=== PATIENT | male | born 1970 | race African-American/Black ===

== ENCOUNTER 2019-07-05 10:25 | Inpatient (IN) | payer OTHER ==
[2019-07-05] MEDS ORDERED: morphine CARPU-JECT 4 MG/1 ML DISP.SYRIN IVPUSH ONE (10:35)
[2019-07-05] MEDS ORDERED: SODIUM CHLORIDE 1,000 ML IV STA (10:35)
[2019-07-05] MEDS ORDERED: MORPHINE SULFATE 2 MG/ML VIAL IVPUSH ONE (10:35)
[2019-07-05] MEDS ORDERED: ONDANSETRON 4 MG/2 ML VIAL IVPUSH ONE (10:38)
[2019-07-05] MEDS ORDERED: morphine SULFATE 4 MG/ML VIAL ONE (10:39)
[2019-07-05 10:42] VITALS: BP 131/72; PULSE 73; TEMP 97.4; BMI 23.0
--- NOTE | 2019-07-05 10:53 | PDOC ---
Documentation entered by Malika Odell SCRIBE, acting as scribe for Vero Zhao DO. Vero Zhao DO: This documentation has been prepared by the Cass cunningham Nirvannie, SCRIBE, under my direction and personally reviewed by me in its entirety. I confirm that the documentation accurately reflects all work, treatment, procedures, and medical decision making performed by me. Attending Attestation - Resident Resident Name: KerryRosalinaAngeli - ED Attending Attestation I have performed the following: I have examined & evaluated the patient, The case was reviewed & discussed with the resident, I agree w/resident's findings & plan, Exceptions are as noted - HPI HPI: 07/05/19 12:02 The patient is a 49 year old male, with a significant past medical history of hepatitis b and hepatitis c, hirschsprung disease, who presents to the emergency department with 1 hour of sudden onset right inguinal pain. As per patient, at approximately 9am he began to experience right inguinal pain with associated nausea, urinary hesitancy, right lower back, and suprapubic pain. He endorses possible hematuria 2 days ago. He denies any testicular, scrotal, or penile pain. He denies any recent fevers, chills, headache or dizziness. He denies any recent diarrhea or constipation. He denies any recent chest pain or shortness of breath. He denies any recent dysuria, frequency, or urgency. Allergies: Penicillins. - Physicial Exam PE: 07/05/19 12:04 Constitutional: +Colicky. Awake, alert, oriented. No acute distress. Head: Normocephalic. Atraumatic Eyes: PERRL. EOMI. Conjunctivae are not pale. ENT: Mucous membranes are moist and intact. Posterior pharynx without exudates or erythema. Uvula midline. Neck: Supple. Full ROM. No lymphadenopathy. Cardiovascular: Regular rate. Regular rhythm. S1, S2 regular. Distal pulses are 2+ and symmetric. Pulmonary/Chest: No evidence of respiratory distress. Clear to auscultation bilaterally No wheezing, rales or rhonchi. Abdominal: Soft and non-distended. No rebound, guarding or rigidity. No organomegaly. No palpable masses. Good bowel sounds. Pelvic: +R inguinal pain. Back: +R low back. No CVA tenderness. Musculoskeletal: No edema. No cyanosis. No clubbing. Full range of motion in all extremities. No calf tenderness. Radial/pedal pulses are intact and 2+ bilaterally Skin: Skin is warm and dry. No petechiae. No purpura. Neurological: Alert and oriented to person, place, and time. Cranial nerves II -XII are grossly intact. Normal speech. Strength is grossly symmetric. No sensory deficits. Psychiatric: Good eye contact. Normal interaction, affect and behavior. - Medical Decision Making 07/05/19 10:50 a/p: 49yo male with acute onset of abd pain radiating to his groin on the right -suspect renal colic -pt denies prior hx of kidney stones -had a normal bm this am -c/o nausea -R low back and R inguinal pain -suprapubic pain -pt states poss hematuria before, urinary hesitancy now -will send labs, scrotal ultrasound and spiral ct -will send ua -will medicate for pain -no testicular ttp, no rashes or lesions, no signs of fourniers disease -will monitor and reassess -pt with colic during exam 07/05/19 12:19 pt with large r renal stone, hydro, uti will start iv abx renal function and wbc normal 07/05/19 12:20 will call urology 07/05/19 14:05 resident discussed the case with Dr. myles Urology who recommends admission for iv abx and will see patient in consult 07/05/19 14:36 resident discussed the case with the admitting team who accepts pt to service
[2019-07-05] MEDS ORDERED: KETOROLAC TROMETHAMINE 30 MG/1 ML VIAL IVPUSH ONE (10:55)
[2019-07-05] MEDS ORDERED: KETOROLAC TROMETHAMINE 30 MG/1 ML VIAL ONE (10:58)
[2019-07-05 11:29] LABS: BASO % 0.5 % (0-2.0); EOS % 0.6 % (0-4.5); HEMATOCRIT 38.7 % (35.4-49); HEMOGLOBIN 12.6 GM/dL (11.7-16.9); LYMPH % 27.8 % (8-40); MCH 24.5 pg (25.7-33.7); MCHC 32.5 g/dl (32.0-35.9); MEAN CELL VOLUME 75.5 fl (80-96); MEAN PLT VOLUME 7.9 fl (7.5-11.1); MONO % 8.7 % (3.8-10.2); NEUT % 62.4 % (42.8-82.8); PLATELET COUNT 233 K/MM3 (134-434); RBC 5.13 M/mm3 (4.00-5.60); RDW 13.6 % (11.9-15.9); WHITE BLOOD COUNT 5.5 K/mm3 (4.0-10.0)
--- NOTE | 2019-07-05 11:31 | PDOC ---
History of Present Illness - General Chief Complaint: Pain Stated Complaint: FALL ABDOMINAL PAIN Time Seen by Provider: 07/05/19 10:29 - History of Present Illness Initial Comments: HPI: 49yo M with PMH of hepatitis b and hepatitis c, hirschsprung disease, hernia presenting with lower abdominal pain and back pain since 9am this morning. Patient has had this same pain for the past year but it is more severe and now rated 10/10. Has not been evaluated by a physician for this pain. Had a normal bowel movement earlier today. No vomiting, but feeling nauseous. Has had hernia surgery in the past but does not remember when. Had some urinary hesitancy this morning. Unsure if he had hematuria. No fever, but endorsing chills. ROS: Constitutional: no fever, +chills HEENT: no throat pain, no dysphagia Cardiovascular: no chest pain, no palpitations Respiratory: no cough, no shortness of breath Gastrointestinal: +abdominal pain, +nausea Genitourinary: no dysuria, +urinary hesitancy Musculoskeletal: no myalgia, no arthralgia Skin: no rash, no itching Neurologic: no headache, no weakness PE: General: Awake, alert, and fully oriented, writhing in bed Head: No signs of trauma Eyes: EOMI, sclera anicteric ENT: Moist mucus membranes Neck: Normal ROM, supple Lungs: Lungs clear, Normal breath sounds Cardio: Regular rhythm, S1 and S2 present Abdomen: Soft, +guarding. Tenderness in inguinal area with no apparent mass/ bulge. +CVA tenderness on right, but not left Extremities: Normal range of motion, Distal pulses present SKIN: Warm, Dry, normal turgor Neurologic: Cranial nerves II through XII grossly intact. Normal speech ED Course/MDM: DDX including but not limited to nephrolithiasis, UTI, pyelonephritis, incarcerated hernia, testicular torsion CT spiral CT Labs Morphine Fluids Toradol 07/05/19 11:31 07/05/19 11:40 Pain controlled, now 06/12 CT report per radiology : "EXAM#: TYPE/EXAM: RESULT: [id number] CT/SPIRAL- RENAL- STONE CT Flank pain. Rule out renal stone CT scan of the abdomen pelvis without oral and intravenous contrast Coronal and sagittal reformatted images were obtained Comparison: None available The visualized lung base appears unremarkable and the heart is within normal limits in size. The stomach is adequately distended without wall thickening. The liver is within normal limits in size with a couple of low-attenuation densities the largest in the left hepatic lobe measuring 1.6 cm that statistically may represent cysts. The spleen , pancreas, both adrenal glands and the left kidney appear unremarkable. There is a large stone in the right renal pelvis measuring 2.7 x 1.1 cm with mild right renal hydronephrosis. There is mild right hydroureter without gross evidence of an obstructing stone. There is no evidence of left hydroureteronephrosis or renal nonobstructing stone. There is no evidence of small bowel obstruction. Normal-appearing terminal ileum and appendix. Normal stool burden the colon with questionable few diverticula in the sigmoid colon and without evidence of acute diverticulitis. Moderately distended urinary bladder without gross wall thickening. Normal size prostate gland. No free air, free fluid or enlarged lymph nodes are identified. Moderate to marked degenerative disc disease at L5-S1 level and mild to moderate degenerative disc disease at L4-L5 level with mild disc bulge at both levels Impression: Large right renal pelvis stone resulting in mild right renal hydronephrosis. No gross right hydroureter or obstructing stone is identified. Likely couple of small simple cysts in the left hepatic lobe with the largest measuring 1.6 cm. Significant degenerative disc disease at L5-S1 level and mild to moderate degenerative disc disease at L4-L5 level Reported By: Betty Dacosta MD 07/05/19 1143 " 07/05/19 12:13 US report per radiology: " EXAM#: TYPE/EXAM: RESULT: [id number] US/SCROTUM AND CONTENTS US Inguinal pain. Rule out torsion Scrotal ultrasound. Azul scale, color doppler and pulse Doppler evaluation of the scrotum was performed The right testicle measures 4 x 2.3 cm with homogeneous echotexture and normal vascular flow. Right epididymal head, body and tail measure 11, 2 and 3 mm, respectively. A small right hydrocele is present. Left testicle measures 4.9 x 2.4 cm with a homogeneous echotexture and normal vascular flow. Left epididymal head, body and tail measure 12, 4 and 3 mm, respectively. A small left hydrocele is present. There is normal and symmetric color Doppler flow in both testicles. No gross evidence of a varicocele, bilaterally Impression: Both testicles appear unremarkable without evidence of torsion. Small right and minimal left hydrocele. There is no evidence of a varicocele. " Patient has a urologist but has not seen him in over five years. Denies history of kidney stone. Page to urology, [phone] Page sent 07/05/19 12:[address] Kaur, urology. Patient likely needs a stent. Plan for admission 07/05/19 13:[address] Jcaob who accepted patient for admission under himself 07/05/19 14:09 Past History - Past Medical History Allergies/Adverse Reactions: Allergies Allergy/AdvReac Type Severity Reaction Status Date / Time Penicillins Allergy Verified 07/05/19 10:42 Home Medications: Ambulatory Orders Ciprofloxacin HCl [Cipro] 500 mg PO BID #20 tablet 07/05/19 Ketorolac Tromethamine [Toradol] 10 mg PO Q6H #28 tablet 07/05/19 COPD: No - Psycho Social/Smoking Cessation Hx Smoking History: Unknown if ever smoked Have you smoked in the past 12 months: No Information on smoking cessation initiated: No Hx Alcohol Use: No Drug/Substance Use Hx: No *Physical Exam - Vital Signs Last Vital Signs Temp Pulse Resp BP Pulse Ox 97.4 F L 73 16 131/72 97 07/05/19 10:25 07/05/19 10:25 07/05/19 10:25 07/05/19 10:25 07/05/19 10:25 ED Treatment Course - LABORATORY CBC & Chemistry Diagram: 07/05/19 10:45 07/05/19 10:45 - RADIOLOGY Radiology Studies Ordered: Category Date Time Status SPIRAL- RENAL-STONE CT [CT] Stat CT Scan 07/05/19 10:37 Ordered SCROTUM AND CONTENTS US [US] Stat Ultrasound 07/05/19 10:38 Ordered - Medications Given in the ED: ED Medications Discontinued Medications Generic Name Dose Route Start Last Admin Trade Name Freq PRN Reason Stop Dose Admin Ketorolac Tromethamine 30 mg 07/05/19 10:55 07/05/19 11:02 Toradol Injection - IVPUSH 07/05/19 10:56 30 mg ONCE ONE Administration Morphine Sulfate 4 mg 07/05/19 10:35 07/05/19 10:52 Morphine Injection - IVPUSH 07/05/19 10:36 4 mg ONCE ONE Administration Ondansetron HCl 4 mg 07/05/19 10:38 07/05/19 10:53 Zofran Injection IVPUSH 07/05/19 10:39 4 mg ONCE ONE Administration Discharge - Discharge Information Problems reviewed: Yes Clinical Impression/Diagnosis: Nephrolithiasis Hydronephrosis Qualifiers: Hydronephrosis type: with renal calculous obstruction Qualified Code(s): N13.2 - Hydronephrosis with renal and ureteral calculous obstruction UTI (urinary tract infection) Qualifiers: Urinary tract infection type: site unspecified Hematuria presence: with hematuria Qualified Code(s): N39.0 - Urinary tract infection, site not specified Condition: Guarded Disposition: AGAINST MEDICAL ADVICE - Admission Yes - Follow up/Referral - Patient Discharge Instructions - Post Discharge Activity
[2019-07-05 11:32] LABS: ALBUMIN 3.8 g/dl (3.4-5.0); BILIRUBIN,TOTAL 0.4 mg/dL (0.2-1); BLOOD UREA NITROGEN 13.6 mg/dL (7-18); CALCIUM 9.1 mg/dL (8.5-10.1); CREATININE 1.2 mg/dL (0.55-1.3); POTASSIUM 3.9 mmol/L (3.5-5.1); TOT PROT 7.4 g/dl (6.4-8.2)
[2019-07-05 11:45] LABS: INR 1.05 (0.83-1.09); PROTHROMBIN TIME (PATIENT) 12.4 SEC (9.7-13.0)
[2019-07-05 11:55] LABS: EPI CELLS 5.4 /HPF (0-5/HPF); HYALINE CASTS 26 /lpf (0-8); PH,URINE 5.5 (5.0-8.0); URINE APPEARANCE CLEAR; URINE BACTERIA 7.2 /hpf (NEGATIVE); URINE BILIRUBIN NEGATIVE (NEGATIVE); URINE COLOR YELLOW; URINE GLUCOSE (UA) TRACE (NEGATIVE); URINE KETONE NEGATIVE (NEGATIVE); URINE LEUK ESTERASE 2+ (NEGATIVE); URINE NITRITE NEGATIVE (NEGATIVE); URINE PROTEIN 2+ (NEGATIVE); URINE RBC 47 /hpf (0-4); URINE UROBILINOGEN 0.2 mg/dL (0.2-1.0); URINE WBC 78 /hpf (0-5)
[2019-07-05] MEDS ORDERED: CIPROFLOXACIN 400 MG/D5W 400 MG/200 ML IVPB IVPB ONE (12:19)
[2019-07-05 15:01] LABS: YEAST NONE SEEN (NEGATIVE)
[2019-07-05] MEDS ORDERED: morphine CARPU-JECT 2 MG/1 ML DISP.SYRIN IM PRN (16:25)
--- NOTE | 2019-07-05 16:31 | HP ---
CHIEF COMPLAINT: Abdominal pain and back pain PCP: Dr Nava HISTORY OF PRESENT ILLNESS:49yo M with PMH of hepatitis b and hepatitis c, hirschsprung disease, hernia presenting with lower abdominal pain and back pain since 9am this morning. Patient has had this same pain for the past year but it is more severe and now rated 10/10. Has not been evaluated by a physician for this pain. Had a normal bowel movement earlier today. No vomiting, but feeling nauseous. Has had hernia surgery in the past but does not remember when. Had some urinary hesitancy this morning. Unsure if he had hematuria. No fever, but endorsing chills. In the ER he was given ciprofloxacin and also pain medicine he is much better also patient is been has a consult by urologist. ER course was notable for: (1) renal stone (2) hydronephrosis (3) UTI Recent Travel: PAST MEDICAL HISTORY: Hepatitis B after C and Hirschsprung disease and hernia repair PAST SURGICAL HISTORY: Hernia repair Social History: History of drug use not active no smoking alcohol or drug use at this time Smoking: Alcohol: Drugs: Allergies Penicillins Allergy (Verified 07/05/19 10:42) HOME MEDICATIONS: REVIEW OF SYSTEMS CONSTITUTIONAL: Absent: fever, chills, diaphoresis, generalized weakness, malaise, loss of appetite, weight change HEENT: Absent: rhinorrhea, nasal congestion, throat pain, throat swelling, difficulty swallowing, mouth swelling, ear pain, eye pain, visual changes CARDIOVASCULAR: Absent: chest pain, syncope, palpitations, irregular heart rate, lightheadedness , peripheral edema RESPIRATORY: Absent: cough, shortness of breath, dyspnea with exertion, orthopnea, wheezing, stridor, hemoptysis GASTROINTESTINAL: He is complaining of back pain which is going towards the front and into his scrotal area GENITOURINARY: Absent: dysuria, frequency, urgency, hesitancy, hematuria, flank pain, genital pain MUSCULOSKELETAL: Absent: myalgia, arthralgia, joint swelling, back pain, neck pain SKIN: Absent: rash, itching, pallor HEMATOLOGIC/IMMUNOLOGIC: Absent: easy bleeding, easy bruising, lymphadenopathy, frequent infections ENDOCRINE: Absent: unexplained weight gain, unexplained weight loss, heat intolerance, cold intolerance NEUROLOGIC: Absent: headache, focal weakness or paresthesias, dizziness, unsteady gait, seizure, mental status changes, bladder or bowel incontinence PSYCHIATRIC: Absent: anxiety, depression, suicidal or homicidal ideation, hallucinations. PHYSICAL EXAMINATION Vital Signs - 24 hr 07/05/19 10:25 Temperature 97.4 F L Pulse Rate 73 Respiratory 16 Rate Blood Pressure 131/72 O2 Sat by Pulse 97 Oximetry (%) GENERAL: Awake, alert, and fully oriented, in no acute distress. HEAD: Normal with no signs of trauma. EYES: Pupils equal, round and reactive to light, extraocular movements intact, sclera anicteric, conjunctiva clear. No lid lag. EARS, NOSE, THROAT: Ears normal, nares patent, oropharynx clear without exudates. Moist mucous membranes. NECK: Normal range of motion, supple without lymphadenopathy, JVD, or masses. LUNGS: Breath sounds equal, clear to auscultation bilaterally. No wheezes, and no crackles. No accessory muscle use. HEART: Regular rate and rhythm, normal S1 and S2 without murmur, rub or gallop. ABDOMEN: Soft, nontender, not distended, normoactive bowel sounds, no guarding, no rebound, no masses. No hepatomegaly or splenomegaly. MUSCULOSKELETAL: Normal range of motion at all joints. No bony deformities or tenderness. No CVA tenderness. UPPER EXTREMITIES: 2+ pulses, warm, well-perfused. No cyanosis. No clubbing. No peripheral edema. LOWER EXTREMITIES: 2+ pulses, warm, well-perfused. No calf tenderness. No peripheral edema. NEUROLOGICAL: Cranial nerves II-XII intact. Normal speech. Normal gait. PSYCHIATRIC: Cooperative. Good eye contact. Appropriate mood and affect. SKIN: Warm, dry, normal turgor, no rashes or lesions noted, normal capillary refill. Laboratory Results - last 24 hr 07/05/19 07/05/19 07/05/19 10:45 10:45 10:45 WBC 5.5 RBC 5.13 Hgb 12.6 Hct 38.7 MCV 75.5 L MCH 24.5 L MCHC 32.5 RDW 13.6 Plt Count 233 MPV 7.9 Absolute Neuts (auto) 3.4 Neutrophils % 62.4 Lymphocytes % 27.8 Monocytes % 8.7 Eosinophils % 0.6 Basophils % 0.5 Nucleated RBC % 0 PT with INR 12.40 INR 1.05 Sodium 137 Potassium 3.9 Chloride 101 Carbon Dioxide 27 Anion Gap 9 BUN 13.6 Creatinine 1.2 Est GFR (CKD-EPI)AfAm 81.80 Est GFR (CKD-EPI)NonAf 70.58 Random Glucose 184 H Calcium 9.1 Total Bilirubin 0.4 AST 32 ALT 23 Alkaline Phosphatase 95 Total Protein 7.4 Albumin 3.8 Urine Color Urine Appearance Urine pH Ur Specific [place] Urine Protein Urine Glucose (UA) Urine Ketones Urine Blood Urine Nitrite Urine Bilirubin Urine Urobilinogen Ur Leukocyte Esterase Urine WBC (Auto) Urine RBC (Auto) Urine Casts (Auto) U Epithel Cells (Auto) Urine Bacteria (Auto) Urine Yeast (Auto) 07/05/19 11:20 WBC RBC Hgb Hct MCV MCH MCHC RDW Plt Count MPV Absolute Neuts (auto) Neutrophils % Lymphocytes % Monocytes % Eosinophils % Basophils % Nucleated RBC % PT with INR INR Sodium Potassium Chloride Carbon Dioxide Anion Gap BUN Creatinine Est GFR (CKD-EPI)AfAm Est GFR (CKD-EPI)NonAf Random Glucose Calcium Total Bilirubin AST ALT Alkaline Phosphatase Total Protein Albumin Urine Color Yellow Urine Appearance Clear Urine pH 5.5 Ur Specific [place] 1.017 Urine Protein 2+ H Urine Glucose (UA) Trace Urine Ketones Negative Urine Blood 2+ H Urine Nitrite Negative Urine Bilirubin Negative Urine Urobilinogen 0.2 Ur Leukocyte Esterase 2+ H Urine WBC (Auto) 78 Urine RBC (Auto) 47 Urine Casts (Auto) 26 U Epithel Cells (Auto) 5.4 Urine Bacteria (Auto) 7.2 Urine Yeast (Auto) None seen ASSESSMENT/PLAN: Renal colic, renal stone, renal hydronephrosis, urinary tract infection. Start him on IV fluids morphine for pain ciprofloxacin urology consult urine strain and will follow Visit type - Emergency Visit Emergency Visit: Yes ED Registration Date: 07/05/19 Care time: The patient presented to the Emergency Department on the above date and was hospitalized for further evaluation of their emergent condition. - New Patient This patient is new to me today: Yes Date on this admission: 07/05/19 - Critical Care Critical Care patient: No
[2019-07-05] MEDS ORDERED: SODIUM CHLORIDE 1,000 ML IV SCH (16:45)
--- NOTE | 2019-07-05 17:32 | DS ---
Physical Exam: SUBJECTIVE: Patient seen and examined Patient sign AGAINST MEDICAL ADVICE LABS Laboratory Results - last 24 hr 07/05/19 07/05/19 07/05/19 10:45 10:45 10:45 WBC 5.5 RBC 5.13 Hgb 12.6 Hct 38.7 MCV 75.5 L MCH 24.5 L MCHC 32.5 RDW 13.6 Plt Count 233 MPV 7.9 Absolute Neuts (auto) 3.4 Neutrophils % 62.4 Lymphocytes % 27.8 Monocytes % 8.7 Eosinophils % 0.6 Basophils % 0.5 Nucleated RBC % 0 PT with INR 12.40 INR 1.05 Sodium 137 Potassium 3.9 Chloride 101 Carbon Dioxide 27 Anion Gap 9 BUN 13.6 Creatinine 1.2 Est GFR (CKD-EPI)AfAm 81.80 Est GFR (CKD-EPI)NonAf 70.58 Random Glucose 184 H Calcium 9.1 Total Bilirubin 0.4 AST 32 ALT 23 Alkaline Phosphatase 95 Total Protein 7.4 Albumin 3.8 Urine Color Urine Appearance Urine pH Ur Specific [place] Urine Protein Urine Glucose (UA) Urine Ketones Urine Blood Urine Nitrite Urine Bilirubin Urine Urobilinogen Ur Leukocyte Esterase Urine WBC (Auto) Urine RBC (Auto) Urine Casts (Auto) U Epithel Cells (Auto) Urine Bacteria (Auto) Urine Yeast (Auto) 07/05/19 11:20 WBC RBC Hgb Hct MCV MCH MCHC RDW Plt Count MPV Absolute Neuts (auto) Neutrophils % Lymphocytes % Monocytes % Eosinophils % Basophils % Nucleated RBC % PT with INR INR Sodium Potassium Chloride Carbon Dioxide Anion Gap BUN Creatinine Est GFR (CKD-EPI)AfAm Est GFR (CKD-EPI)NonAf Random Glucose Calcium Total Bilirubin AST ALT Alkaline Phosphatase Total Protein Albumin Urine Color Yellow Urine Appearance Clear Urine pH 5.5 Ur Specific [place] 1.017 Urine Protein 2+ H Urine Glucose (UA) Trace Urine Ketones Negative Urine Blood 2+ H Urine Nitrite Negative Urine Bilirubin Negative Urine Urobilinogen 0.2 Ur Leukocyte Esterase 2+ H Urine WBC (Auto) 78 Urine RBC (Auto) 47 Urine Casts (Auto) 26 U Epithel Cells (Auto) 5.4 Urine Bacteria (Auto) 7.2 Urine Yeast (Auto) None seen HOSPITAL COURSE: Patient was able to the hospital started on IV antibiotic IV fluids urology consult called. Patient felt better no more pain he decided to not to stay in the hospital discussing the dangers of leaving with infection active and stone he might come back but patient did not want to stay and he signed out AGAINST MEDICAL ADVICE as a courtesy I sent a prescription of Toradol and Cipro to his pharmacy and advised him to see the urologist number given to him and also advised him to follow-up with his doctor. Thank you Date of Admission:07/05/19 Date of Discharge: 07/05/19 Minutes to complete discharge: 30 Discharge Summary Problems reviewed: Yes Reason For Visit: UTI,HYDRONEPHROSIS,CALCULUS OF KIDNEY Current Active Problems Hydronephrosis (Acute) Nephrolithiasis (Acute) UTI (urinary tract infection) (Acute) Condition: Guarded - Instructions Referrals: ON STAFF,NOT [Primary Care Provider] - Disposition: AGAINST MEDICAL ADVICE - Home Medications Comprehensive Discharge Medication List: Ambulatory Orders Ciprofloxacin HCl [Cipro] 500 mg PO BID #20 tablet 07/05/19 Ketorolac Tromethamine [Toradol] 10 mg PO Q6H #28 tablet 07/05/19 This patient is new to me today: Yes Date on this admission: 07/05/19 Emergency Visit: Yes ED Registration Date: 07/05/19 Care time: The patient presented to the Emergency Department on the above date and was hospitalized for further evaluation of their emergent condition. Critical Care patient: No - Discharge Referral Referred to [facility] Med [facility] No
[2019-07-06] MEDS ORDERED: MORPHINE SULFATE 2 MG/ML VIAL IM PRN (07:07)
--- NOTE | 2019-07-06 09:19 | EKG ---
Test Reason : Blood Pressure : / mmHG Vent. Rate : 060 BPM Atrial Rate : 060 BPM P-R Int : 166 ms QRS Dur : 096 ms QT Int : 450 ms P-R-T Axes : 059 045 049 degrees QTc Int : 450 ms NORMAL SINUS RHYTHM NORMAL ECG NO PREVIOUS ECGS AVAILABLE Confirmed by Roman Mijares ([id number]) on 07/06/2019 9:19:38 AM Referred By: Confirmed By:Roman Mijares
== END 2019-07-05 18:00 | disposition left against medical advice (07) | DRG 690 ==
LOC: JER 10:25 → JERBED 13:58
PROVIDERS: ADMIT Internal Medicine; ATTEND Internal Medicine
DX: N39.0 Urinary tract infection, site not specified (principal); N13.6 Pyonephrosis
CPT/HCPCS: 36415; 74176-TC; 76870-TC; 80053; 81003; 85025; 85610; 87086; 93005; 93010; 99283-25; J7030

== ENCOUNTER 2020-03-10 13:43 | Emergency (ER) | payer OTHER ==
[2020-03-10 13:55] VITALS: BP 115/81; PULSE 64; BMI 27.1
[2020-03-10 13:56] VITALS: TEMP 98.7
[2020-03-10] MEDS ORDERED: SODIUM CHLORIDE 1,000 ML IV STA (15:00)
--- NOTE | 2020-03-10 15:16 | PDOC ---
History of Present Illness - General Chief Complaint: Hematuria Stated Complaint: BLOOD IN URINE Time Seen by Provider: 03/10/20 14:28 History Source: Patient Exam Limitations: Clinical Condition - History of Present Illness Travel History: No Initial Comments: 03/10/20 15:11 Patient with past medical history of kidney stone status post ureteral stent p lacement in August presented with complaint of 7 months history of hematuria after attempt was made to remove stent 6 months ago. Patient reported saw urologist in [facility] in [place] during COVID outbreak and was not allowed to have anesthesia done and urologist attempted to remove stent without anesthesia which was very painful. Patient reported he has not followed up since then 6 months ago as he did not trust the urologist anymore. Patient report has been having painless until few weeks ago when he has been having intermittent right groin pinching pain. Patient has not followed up until today. Patient report moderate amount of blood in the urine every time he urinates. Denies fever, chills, abdominal pain. Denies any other symptoms Timing/Duration: reports: other (7 months) Quality: reports: moderate Past History - Medical History Allergies/Adverse Reactions: Allergies Allergy/AdvReac Type Severity Reaction Status Date / Time Penicillins Allergy Verified 03/10/20 13:48 Home Medications: Ambulatory Orders Ketorolac Tromethamine [Toradol] 10 mg PO Q6H #28 tablet 07/05/19 Ciprofloxacin HCl [Cipro] 500 mg PO BID #20 tablet 03/10/20 COPD: No - Psycho-Social/Smoking History Smoking History: Current every day smoker Have you smoked in the past 12 months: Yes Number of Cigarettes Smoked Daily: 0 Information on smoking cessation initiated: Yes - Substance Abuse Hx (Audit-C & DAST Scrn) How often the patient has a drink containing alcohol: Never Score: In Men: 4 or > Positive; In Women: 3 or > Positive: 0 Screen Result (Pos requires Nsg. Audit-10AR): Negative In the last yr the pt used illegal drug/Rx for NonMed reason: Yes Score: Yes response is considered Positive: 1 Screen Result (Positive result requires Nsg. DAST-10): Positive Review of Systems - Review of Systems Able to Perform ROS?: Yes Is the patient limited Ukrainian proficient: No Constitutional: No: Symptoms Reported, Fever, Malaise HEENTM: No: Symptoms Reported, See HPI, Eye Pain, Blurred Vision, Tearing, Recent change in vision, Double Vision, Cataracts, Ear Pain, Ocular Prothesis, Ear Discharge, Nose Pain, Nose Congestion, Tinnitus, Nose Bleeding, Hearing Loss, Throat Pain, Throat Swelling, Mouth Pain, Dental Problems, Difficulty Swallowing, Mouth Swelling, Other Respiratory: No: Symptoms reported, See HPI, Cough, Orthopnea, Shortness of Breath, SOB with Exertion, SOB at Rest, Stridor, Wheezing, Productive cough, Hemoptysis, Other Cardiac (ROS): No: Symptoms Reported, See HPI, Chest Pain, Edema, Irregular Heart Rate, Lightheadedness, Palpitations, Syncope, Chest Tightness, Other ABD/GI: No: Symptoms Reported, See HPI, Nausea, Vomiting : Yes: Symptoms Reported, See HPI, Hematuria, Pain (right intermittent groin pain). No: Dysuria, Discharge, Frequency, Testicular Mass, Testicular Swelling, Testicular Pain, Other Musculoskeletal: No: Symptoms Reported, See HPI, Back Pain Neurological: No: Symptoms reported, Headache, Dizziness All Other Systems: Reviewed and Negative *Physical Exam - Vital Signs Last Vital Signs Temp Pulse Resp BP Pulse Ox 98.7 F 64 18 115/81 100 03/10/20 13:49 03/10/20 13:49 03/10/20 13:49 03/10/20 13:49 03/10/20 13:49 - Physical Exam General Appearance: Yes: Nourished, Appropriately Dressed. No: Apparent Distress HEENT: positive: Normal ENT Inspection Neck: negative: Supple Respiratory/Chest: positive: Lungs Clear, Normal Breath Sounds. negative: Chest Tender, Respiratory Distress, Accessory Muscle Use Cardiovascular: positive: Regular Rhythm, Regular Rate Gastrointestinal/Abdominal: positive: Normal Bowel Sounds, Flat. negative: Tender, Soft, Guarding, Rebound Male Genitalia: positive: normal genitalia, other ( mild tenderness to right groin area with no testicular pain or swelling). negative: discharge, testicular tenderness, testicular mass, epididymus tender, hernia, CVAT Musculoskeletal: positive: Normal Inspection. negative: CVA Tenderness Extremity: positive: Normal Inspection, Normal Range of Motion Integumentary: positive: Normal Color Neurologic: positive: Fully Oriented, Alert, Normal Mood/Affect, Normal Response, Motor Strength / ED Treatment Course - LABORATORY CBC & Chemistry Diagram: 03/10/20 15:13 03/10/20 15:13 - RADIOLOGY Radiology Studies Ordered: Category Date Time Status KIDNEY / RENAL US [US] Stat Ultrasound 03/10/20 15:00 Ordered Medical Decision Making - Medical Decision Making 03/10/20 15:14 Patient with past medical history of kidney stone status post ureteral stent placement in August presented with complaint of 7 months history of hematuria after attempt was made to remove stent 6 months ago. Patient reported saw urologist in [facility] in [place] doing COVID and was not allowed to have anesthesia done and urologist attempted to remove stent without anesthesia which was very painful. Patient reported he has not followed up since then 6 months ago as he did not trust the urologist anymore. Patient report has been having painless until few weeks ago when he has been having intermittent right groin pinching pain. Patient has not followed up until today. Patient report moderate amount of blood in the urine every time he urinates. Denies fever, chills, abdominal pain. Denies any other symptoms Exam significant for mild tenderness to right groin area with no testicular pain or swelling. No tenderness to abdomen. No guarding or rebound. No hernia on exam. Gross hematuria on the patient's urine sample Patient symptoms likely gross hematuria from stent displacement. UA, urine culture lab ordered. Renal ultrasound ordered to evaluate stent. CBC and chemistry lab ordered to rule out bacteremia. Treat based on lab and imaging results 03/10/20 17:54 CBC normal and shows no bacteremia. BUN and creatinine normal. UA shows hematuria with small amount of WBCs. Renal ultrasound shows renal stenting right kidney. Patient in no acute distress. Called and spoke to urologist Dr. Butcher who request patient be discharged home on antibiotics and follow- up in office for management of renal stent causing hematuria. Patient stable for discharge on Cipro antibiotics twice daily for 10 days with follow-up with urology Discharge - Discharge Information Problems reviewed: Yes Clinical Impression/Diagnosis: Gross hematuria, History of renal stent Condition: Stable Disposition: HOME - Admission No - Additional Discharge Information Prescriptions: Ciprofloxacin HCl [Cipro] 500 mg PO BID #20 tablet - Follow up/Referral Referrals: Dillon Butcher MD [Staff Physician] - - Patient Discharge Instructions Patient Printed Discharge Instructions: DI for Hematuria Additional Instructions: Your blood work shows no infection. Your ultrasound shows the stent in your right kidney. Take prescribed antibiotics as prescribed. Follow-up with referred urologist office to arrange for removal of the stent as discussed. Call office tomorrow and make immediate follow-up appointment. - Post Discharge Activity
--- OUTSIDE RECORDS SUMMARY | 2020-03-10 15:18 | XMS ---
:1970 Author Organization [facility] Support Name Relationship Address Phone [employer] Unavailable [address] [place] [address] TRIXIE BERNSTEIN SON [address] [address] Re-disclosure Warning The records that you are about to access may contain information from federally- assisted alcohol or drug abuse programs. If such information is present, then the following federally mandated warning applies: This information has been disclosed to you from records protected by federal confidentiality rules (42 CFR part 2). The federal rules prohibit you from making any further disclosure of this information unless further disclosure is expressly permitted by the written consent of the person to whom it pertains or as otherwise permitted by 42 CFR part 2. A general authorization for the release of medical or other information is NOT sufficient for this purpose. The Federal rules restrict any use of the information to criminally investigate or prosecute any alcohol or drug abuse patient.The records that you are about to access may contain highly sensitive health information, the redisclosure of which is protected by Article 27-F of the [facility] Public Health law. If you continue you may haveaccess to information: Regarding HIV / AIDS; Provided by facilities licensed or operated by the [facility] Office of Mental Health; or Provided by the [facility] Office for People With Developmental Disabilities. If such information is present, then the following [facility] mandated warning applies: This information has been disclosed to you from confidential records which are protected by state law. State law prohibits you from making any further disclosure of this information without the specific written consent of the person to whom it pertains, or as otherwise permitted by law. Any unauthorized further disclosure in violation of state law may result in a fine or fdc sentence or both. A general authorization for the release of medical or other information is NOT sufficient authorization for further disclosure. Insurance Providers Payer name Policy type Policy ID Covered Covered constitution party's Policy P alejandro / Coverage constitution party ID relationship to [employer] or[employer] type [employer] PPO [id number] SP [id number] 1 SELF PAY SP INSURANCE
[2020-03-10 15:23] LABS: EPI CELLS 36 /uL (0-25.1); HYALINE CASTS 11 /uL (0-3.1); URINE APPEARANCE TURBID; URINE BACTERIA 16 /uL (0-1359); URINE BILIRUBIN NEGATIVE (NEGATIVE); URINE COLOR ORANGE; URINE GLUCOSE (UA) TRACE (NEGATIVE); URINE KETONE NEGATIVE (NEGATIVE); URINE LEUK ESTERASE 2+ (NEGATIVE); URINE NITRITE NEGATIVE (NEGATIVE); URINE PROTEIN 2+ (NEGATIVE); URINE UROBILINOGEN 0.2 mg/dL (0.2-1.0); URINE WBC 382 /uL (0-25.8)
[2020-03-10 15:30] LABS: EOS % 0.5 % (0-4.5); HEMATOCRIT 41.2 % (35.4-49); HEMOGLOBIN 13.3 GM/dL (11.7-16.9); LYMPH % 39.6 % (8-40); MCH 24.3 pg (25.7-33.7); MCHC 32.2 g/dl (32.0-35.9); MEAN CELL VOLUME 75.3 fl (80-96); MEAN PLT VOLUME 7.2 fl (7.5-11.1); NEUT % 37.9 % (42.8-82.8); PLATELET COUNT 204 K/MM3 (134-434); RBC 5.47 M/mm3 (4.00-5.60); RDW 14.1 % (11.9-15.9)
[2020-03-10 15:57] LABS: ALBUMIN 3.8 g/dl (3.4-5.0); BILIRUBIN,TOTAL 0.2 mg/dL (0.2-1); BLOOD UREA NITROGEN 12.8 mg/dL (7-18); CALCIUM 9.1 mg/dL (8.5-10.1); CREATININE 1.1 mg/dL (0.55-1.3); POTASSIUM 4.5 mmol/L (3.5-5.1); TOT PROT 7.6 g/dl (6.4-8.2)
[2020-03-10 16:00] LABS: URINE RBC 1131.9 /uL (0-23.9)
[2020-03-10 16:20] LABS: ANISOCYTOSIS 1+; MACROCYTOSIS 0; OVALOCYTE 2+; PLATELET ESTIMATE NORMAL
== END 2020-03-10 19:02 | disposition home or self-care (01) ==
LOC: JER 13:43
PROC: 3E0337Z Introduction of Electrolytic and Water Balance Substance into Peripheral Vein, Percutaneous Approach (ICD-10-PCS; principal; 2020-03-10)
DX: R31.0 Gross hematuria (principal); Z96.0 Presence of urogenital implants
CPT/HCPCS: 36415; 76775-TC; 80053; 81003; 85025; 87086; 99284-25